=== PATIENT | female | born 1940 | race Caucasian/White ===

== ENCOUNTER 2016-08-15 19:54 | Emergency (ER) | payer BC | END 2016-08-15 23:27 | disposition home or self-care (01) | LOC: ER 19:54 | DX: R04.0 Epistaxis (principal); D68.9 Coagulation defect, unspecified; I48.91 Unspecified atrial fibrillation; Z79.899 Other long term (current) drug therapy | CPT/HCPCS: 36415 ==

== ENCOUNTER 2016-08-16 09:25 | Emergency (ER) | payer BC | END 2016-08-16 10:38 | disposition home or self-care (01) | LOC: ER 09:25 | DX: R04.0 Epistaxis (principal); R79.1 Abnormal coagulation profile; E11.9 Type 2 diabetes mellitus without complications; I25.10 Atherosclerotic heart disease of native coronary artery without angina pectoris; Z90.5 Acquired absence of kidney; Z90.12 Acquired absence of left breast and nipple; Z79.01 Long term (current) use of anticoagulants; Z79.84 Long term (current) use of oral hypoglycemic drugs; Z79.899 Other long term (current) drug therapy | CPT/HCPCS: 36415 ==